=== PATIENT | female | born 1990 | race Two or more races ===

== ENCOUNTER 2016-10-13 23:42 | Emergency (ER) | payer BC, OTHER ==
[2016-10-14] MEDS ORDERED: Sodium Chloride 0.9% 10 ML Syringe FLUSH PRN (00:07)
[2016-10-14] MEDS ORDERED: Sodium Chloride 0.9% 1,000 ML IV ONE (00:07)
[2016-10-14] MEDS ORDERED: Ketorolac 30 MG/ML SDV IVPUSH ONE (00:07)
[2016-10-14] MEDS ORDERED: Sodium Chloride 0.9% 2.5 ML Syringe FLUSH PRN (00:07)
[2016-10-14] MEDS ORDERED: Ondansetron 4 MG/2 ML SDV IVPUSH ONE (00:07)
--- NOTE | 2016-10-14 00:10 | EDM.PDOC ---
ED HPI GENERAL MEDICAL PROBLEM - General Chief Complaint: Upper Extremity Injury/Pain Stated Complaint: POSSIBLE DISLOCATED RIGHT SHOULDER Time Seen by Provider: 10/13/16 23:58 - History of Present Illness INITIAL COMMENTS - FREE TEXT/NARRATIVE: HISTORY AND PHYSICAL: History of present illness: The patient is a healthy 26-year-old female who presents with complaints of right shoulder pain after she attempted to bulk picker her large 3-year-old child and felt a pop. Prior to these events she was in usual state of good health with no complaints and afterwards she has had inability to range of motion the arm at the shoulder and specific pain there. She has no neurosensory changes in the upper extremity and no other complaints of the distal forearm wrist hand or elbow pain. She has no head neck or back pain and she last had anything to eat or drink at approximately 2 hours ago, she had 2 beers. Patient denies and states she has a bilateral tubal ligation and regular periods. Review of systems: As per history of present illness and below otherwise all systems reviewed and negative. Past medical history: As per history of present illness and as reviewed below otherwise noncontributory. Surgical history: As per history of present illness and as reviewed below otherwise noncontributory. Social history: No reported history of drug or alcohol abuse. Family history: As per history of present illness and as reviewed below otherwise noncontributory. Physical exam: Gen.: Well-developed thin female who is nontoxic and very tearful and exaggerated with exam and exam is very difficult due to the patient's inability to cooperate well. HEENT: Atraumatic, normocephalic, pupils reactive, negative for conjunctival pallor or scleral icterus, mucous membranes moist, throat clear, neck supple, nontender, trachea midline. Teeth are intact Lungs: Clear to auscultation, breath sounds equal bilaterally, chest nontender. Heart: S1S2, regular rate and rhythm no overt murmurs Abdomen: Soft, nondistended, nontender. NABS Pelvis: Stable nontender. Genitourinary: Deferred. Rectal: Deferred. Extremities: Atraumatic without any bony deformities appreciated but there is visible before meals step-offs and inability to range of motion at the right shoulder. Pulses are intact distally and there is no distal humeral elbow forearm wrist or hand tenderness., negative for cords or calf pain. Neurovascular unremarkable. Neuro: Awake, alert, oriented. Cranial nerves II through XII unremarkable. Cerebellum unremarkable. Motor and sensory unremarkable throughout. Exam nonfocal. Diagnostics: Right shoulder x-ray x 2 Therapeutics: IV fluids Toradol Zofran After x-ray was reviewed and confirmed anterior dislocation I discussed the procedure with the patient and at bedside. I consented them explaining the wrist and benefits of both the anesthesia as well as the closed reduction of the shoulder. I also told them that Jj Smith would be coming and further explaining the anesthesia he will be giving and the risks and benefits of that. Procedure note: After the patient received IV sedation per EXPERIMENTAL [employer]CRA[employer] MECH[employer]IC--- please see his note for details-- using gentle traction the shoulder was reduced easily and there were no complications. A follow-up x-ray has been ordered and will be checked by me and a shoulder immobilizer will be placed. The patient tolerated the procedure well. I did discuss with the and the patient that she would need to wear the immobilizer and not remove it the next several days and that she would have to arrange follow-up with our orthopedics clinic for further care and evaluation. Impression: Anterior right shoulder dislocation Definitive disposition and diagnosis as appropriate pending reevaluation and review of above. Right Shoulder Pain Score (Numeric/FACES): 10 - Related Data Allergies Allergy/AdvReac Type Severity Reaction Status Date / Time acetaminophen [From Midol] Allergy Rash Verified 10/13/16 23:52 pamabrom [From Midol] Allergy Rash Verified 10/13/16 23:52 Home Meds: Home Meds . [No Known Home Meds] 10/13/16 [History] Past Medical History - Past Health History Medical/Surgical History: Denies Medical/Surgical History Social & Family History - Family History Family Medical History: Noncontributory - Tobacco Use Smoking Status *Q: Current Every Day Smoker Years of Tobacco use: 1 Packs/Tins Daily: 0.4 Second Hand Smoke Exposure: No - Caffeine Use Caffeine Use: Reports: Coffee - Alcohol Use Days Per Week of Alcohol Use: 0 - Recreational Drug Use Recreational Drug Use: No Review of Systems - Review of Systems Review Of Systems: ROS reveals no pertinent complaints other than HPI. ED EXAM, GENERAL - Physical Exam Exam: See Below (See dictation) Course - Vital Signs Last Recorded V/S: Last Vital Signs Temp 36.7 C 10/13/16 23:53 Pulse 107 H 10/13/16 23:53 Resp 20 10/14/16 00:29 BP 148/83 H 10/13/16 23:53 Pulse Ox 98 10/14/16 00:29 - Orders/Labs/Meds Orders: Active Orders 24 hr Category Date Time Status Shoulder 1V Rt [CR] Stat Exams 10/14/16 00:06 Taken Shoulder 1V Rt [CR] Stat Exams 10/14/16 00:47 Ordered Sodium Chloride 0.9% [Normal Saline] 1,000 ml Med 10/14/16 00:07 Active IV STAT Sodium Chloride 0.9% [Saline Flush] Med 10/14/16 00:07 Active 10 ml FLUSH ASDIRECTED PRN Sodium Chloride 0.9% [Saline Flush] Med 10/14/16 00:07 Active 2.5 ml FLUSH ASDIRECTED PRN DME for Discharge [COMM] Stat Oth 10/14/16 00:29 Ordered Saline Lock Insert [OM.PC] Stat Oth 10/14/16 00:07 Ordered Medication Orders Sodium Chloride (Normal Saline) 1,000 mls @ 999 mls/hr IV STAT ONE Stop: 10/14/16 01:07 Last Admin: 10/14/16 00:22 Dose: 999 mls/hr Sodium Chloride (Saline Flush) 10 ml FLUSH ASDIRECTED PRN PRN Reason: Keep Vein Open Last Admin: 10/14/16 00:21 Dose: 10 ml Sodium Chloride (Saline Flush) 2.5 ml FLUSH ASDIRECTED PRN PRN Reason: Keep Vein Open Last Admin: 10/14/16 00:21 Dose: 2.5 ml Meds: Medications Generic Name Dose Route Start Last Admin Trade Name Freq PRN Reason Stop Dose Admin Sodium Chloride 1,000 mls @ 999 mls/hr 10/14/16 00:07 10/14/16 00:22 Normal Saline IV 10/14/16 01:07 999 mls/hr STAT ONE Administration Sodium Chloride 10 ml 10/14/16 00:07 10/14/16 00:21 Saline Flush FLUSH 10 ml ASDIRECTED PRN Administration Keep Vein Open Sodium Chloride 2.5 ml 10/14/16 00:07 10/14/16 00:21 Saline Flush FLUSH 2.5 ml ASDIRECTED PRN Administration Keep Vein Open Discontinued Medications Generic Name Dose Route Start Last Admin Trade Name Radha PRN Reason Stop Dose Admin Propofol Confirm 10/14/16 00:31 Diprivan 50 Ml Administered 10/14/16 00:32 Dose 50 mls @ as directed .ROUTE .STK-MED ONE Ketorolac Tromethamine 30 mg 10/14/16 00:07 10/14/16 00:23 Toradol IVPUSH 10/14/16 00:08 30 mg ONETIME ONE Administration Ondansetron HCl 4 mg 10/14/16 00:07 10/14/16 00:22 Zofran IVPUSH 10/14/16 00:08 4 mg ONETIME ONE Administration Departure - Departure Time of Disposition: 01:00 Disposition: Home, Self-Care 01 Condition: Good Clinical Impression: Anterior shoulder dislocation Qualifiers: Encounter type: initial encounter Laterality: right Qualified Code(s): S43.014A - Anterior dislocation of right humerus, initial encounter - Discharge Information Referrals: PCP,None [Primary Care Provider] - Forms: ED Department Discharge Additional Instructions: The following information is given to patients seen in the emergency department who are being discharged to home. This information is to outline your options for follow-up care. We provide all patients seen in our emergency department with a follow-up referral. The need for follow-up, as well as the timing and circumstances, are variable depending upon the specifics of your emergency department visit. If you don't have a primary care physician on staff, we will provide you with a referral. We always advise you to contact your personal physician following an emergency department visit to inform them of the circumstance of the visit and for follow-up with them and/or the need for any referrals to a consulting specialist. The emergency department will also refer you to a specialist when appropriate. This referral assures that you have the opportunity for followup care with a specialist. All of these measure are taken in an effort to provide you with optimal care, which includes your followup. Under all circumstances we always encourage you to contact your private physician who remains a resource for coordinating your care. When calling for followup care, please make the office aware that this follow-up is from your recent emergency room visit. If for any reason you are refused follow-up, please contact the [facility] emergency department at and ask to speak to the emergency department charge nurse. [facility] Specialty Care--Orthopedic clinic Professional Building [address] [place] [address] [address] [place] [address] [facility] Primary care- Internal Medicine and Family [facility] [address] [place] [id number] Please do not remove the shoulder immobilizer that was placed on you tonight until you are seen by the marketing communications specialist. Please call the clinic tomorrow to be seen this week and place ice on areas of swelling and pain. Please take [id number] medications for pain as needed. Return to ER as needed and as discussed. - My Orders Last 24 Hours: My Active Orders 10/14/16 00:06 Shoulder 1V Rt [CR] Stat 10/14/16 00:07 Sodium Chloride 0.9% [Normal Saline] 1,000 ml IV STAT Sodium Chloride 0.9% [Saline Flush] 10 ml FLUSH ASDIRECTED PRN Sodium Chloride 0.9% [Saline Flush] 2.5 ml FLUSH ASDIRECTED PRN Saline Lock Insert [OM.PC] Stat 10/14/16 00:29 DME for Discharge [COMM] Stat 10/14/16 00:47 Shoulder 1V Rt [CR] Stat - Assessment/Plan Last 24 Hours: My Active Orders 10/14/16 00:06 Shoulder 1V Rt [CR] Stat 10/14/16 00:07 Sodium Chloride 0.9% [Normal Saline] 1,000 ml IV STAT Sodium Chloride 0.9% [Saline Flush] 10 ml FLUSH ASDIRECTED PRN Sodium Chloride 0.9% [Saline Flush] 2.5 ml FLUSH ASDIRECTED PRN Saline Lock Insert [OM.PC] Stat 10/14/16 00:29 DME for Discharge [COMM] Stat 10/14/16 00:47 Shoulder 1V Rt [CR] Stat
--- NOTE | 2016-10-14 00:29 | PCM.PREANE ---
Preanesthetic Assessment - Anesthesia/Transfusion/Family Hx Anesthesia History: Prior Anesthesia Without Reaction - Review of Systems General: No Symptoms Pulmonary: No Symptoms Cardiovascular: No Symptoms Gastrointestinal: No symptoms Neurological: No Symptoms Other: Reports: None - Physical Assessment O2 Sat by Pulse Oximetry: 98 Respiratory Rate: 20 Vital Signs: Last Vital Signs Temp 98.1 F 10/13/16 23:53 Pulse 107 H 10/13/16 23:53 Resp 20 10/13/16 23:53 BP 148/83 H 10/13/16 23:53 Pulse Ox 98 10/13/16 23:53 Height: 4 ft 10 in Weight: 52.163 kg ASA Class: 2E Mental Status: Alert & Oriented x3 Airway Class: Mallampati = 2 Dentition: Reports: Normal Dentition Thyro-Mental Finger Breadths: 3 Mouth Opening Finger Breadths: 3 ROM/Head Extension: Full Lungs: Clear to auscultation, Normal respiratory effort Cardiovascular: Regular Rate, Regular Rhythm - Allergies Allergies/Adverse Reactions: Allergies Allergy/AdvReac Type Severity Reaction Status Date / Time acetaminophen [From Midol] Allergy Rash Verified 10/13/16 23:52 pamabrom [From Midol] Allergy Rash Verified 10/13/16 23:52 - Anesthesia Plan Free Text/Narrative:: Acute shoulder dislocation with last PO intake 2 hrs ago - Acknowledgements Anesthesia Type Planned: MAC Pt an Appropriate Candidate for the Planned Anesthesia: Yes Alternatives and Risks of Anesthesia Discussed w Pt/Guardian: Yes Pt/Guardian Understands and Agrees with Anesthesia Plan: Yes PreAnesthesia Questionnaire - Past Health History Medical/Surgical History: Denies Medical/Surgical History HEENT History: Reports: None Cardiovascular History: Reports: None Respiratory History: Reports: None Gastrointestinal History: Reports: None Genitourinary History: Reports: None Musculoskeletal History: Reports: None Neurological History: Reports: None Psychiatric History: Reports: None Endocrine/Metabolic History: Reports: None Hematologic History: Reports: None Immunologic History: Reports: None Oncologic (Cancer) History: Reports: None Dermatologic History: Reports: None - Infectious Disease History Infectious Disease History: Reports: None - SUBSTANCE USE Smoking Status *Q: Current Every Day Smoker Second Hand Smoke Exposure: No Days Per Week of Alcohol Use: 0 Recreational Drug Use History: No - HOME MEDS Home Medications: Home Meds . [No Known Home Meds] 07/16/17 [History] - CURRENT (IN HOUSE) MEDS Current Meds: Current Medications Sodium Chloride (Normal Saline) 1,000 mls @ 999 mls/hr IV STAT ONE Stop: 10/14/16 01:07 Last Admin: 10/14/16 00:22 Dose: 999 mls/hr Sodium Chloride (Saline Flush) 10 ml FLUSH ASDIRECTED PRN PRN Reason: Keep Vein Open Last Admin: 10/14/16 00:21 Dose: 10 ml Sodium Chloride (Saline Flush) 2.5 ml FLUSH ASDIRECTED PRN PRN Reason: Keep Vein Open Last Admin: 10/14/16 00:21 Dose: 2.5 ml Discontinued Medications Ketorolac Tromethamine (Toradol) 30 mg IVPUSH ONETIME ONE Stop: 10/14/16 00:08 Last Admin: 10/14/16 00:23 Dose: 30 mg Ondansetron HCl (Zofran) 4 mg IVPUSH ONETIME ONE Stop: 10/14/16 00:08 Last Admin: 10/14/16 00:22 Dose: 4 mg
--- NOTE | 2016-10-14 01:04 | PCM48HPAN ---
Post Anesthesia Note - EVALUATION WITHIN 48HRS OF ANESTHETIC Vital Signs in Normal Range: Yes Patient Participated in Evaluation: Yes Respiratory Function Stable: Yes Airway Patent: Yes Cardiovascular Function Stable: Yes Hydration Status Stable: Yes Pain Control Satisfactory: Yes Nausea and Vomiting Control Satisfactory: Yes - COMMENTS/OBSERVATIONS Free Text/Narrative:: Pt is alert and oriented. VSS. Pt may leave if she is still feeling fine after 30 minutes.
[2016-10-14 01:43] VITALS: BP 116/77
--- NOTE | 2016-10-14 12:59 | CR ---
EXAM DATE: 10/13/16 PATIENT'S AGE: 26 Patient: EULALIO [facility] Facility: [place], [place] Site . Site : 1991 Study: XRay Shoulder Right [id number]/17/2017 12:24:15 AM Ordering Physician: Tricia Espinoza Final Report: INDICATION: Rule out dislocation. TECHNIQUE: Right shoulder, AP view only. COMPARISON: None FINDINGS: Single AP view of the right shoulder. The right humeral head is inferomedially displaced relative to the glenoid on this view, indicating anterior dislocation injury. No definite fracture. Inferior glenoid unremarkable. Right AC joint intact. Visualized right ribs intact. IMPRESSION: 1. Anterior right shoulder dislocation. Dictated by Mariano Vizcarra MD @ 10/14/2016 12:48:02 AM Dictated by: Mariano Vizcarra MD @ 10/14/2016 00:48:06 (Electronic Signature) Report Signed by Proxy. MTDWade
--- NOTE | 2016-10-14 13:00 | CR ---
EXAM DATE: 10/13/16 PATIENT'S AGE: 26 Patient: EULALIO [facility] Facility: [place], [place] Site . Site : 1991 Study: XRay Shoulder Right [id number]/17/2017 12:51:24 AM Ordering Physician: Tricia Espinoza Final Report: Indication: Pain. Postreduction. Technique: Right shoulder one view. Comparison: Right shoulder 10/14/2016 at 12:18 a.m.. Findings: Successful reduction of previously noted anterior shoulder dislocation. No evidence of acute fracture. Soft tissues as imaged are unremarkable. Impression: Successful reduction of previous shoulder dislocation. Dictated by Tylor Mann MD @ 10/14/2016 12:58:26 AM Dictated by: Tylor Mann MD @ 10/14/2016 00:58:34 (Electronic Signature) Report Signed by Proxy. [facility]
== END 2016-10-14 01:27 | disposition home or self-care (01) ==
LOC: MW.ED 23:42
DX: S43.014A Anterior dislocation of right humerus, initial encounter (principal); F17.210 Nicotine dependence, cigarettes, uncomplicated; Z88.6 Allergy status to analgesic agent; Z88.8 Allergy status to other drugs, medicaments and biological substances; X50.9XXA Other and unspecified overexertion or strenuous movements or postures, initial encounter
CPT/HCPCS: 23650; 73020; 96361; 96374; 96375; 99283; J1885; J2405; J7040; 01620; 99284; J2704